=== PATIENT | male | born 1985 | race Caucasian/White ===

== ENCOUNTER 2023-03-12 07:24 | Emergency (ER) | payer BC ==
[~2023-03-12] VITALS: Wt 104.3 kg
[2023-03-12] MEDS ORDERED: MELOXICAM10 MG PO (08:53)
== END 2023-03-12 09:06 | disposition home or self-care (01) ==
LOC: ED 07:24
DX: S46.812A Strain of other muscles, fascia and tendons at shoulder and upper arm level, left arm, initial encounter (principal); X50.1XXA Overexertion from prolonged static or awkward postures, initial encounter; Y93.89 Activity, other specified; Y92.89 Other specified places as the place of occurrence of the external cause; Y99.8 Other external cause status